=== PATIENT | male | born 1955 | race Two or more races ===

== ENCOUNTER → 2021-12-30 | Emergency (ER) | payer SELFPAY ==
[~2021-12-30] VITALS: Ht 170.2 cm; Wt 73.5 kg
--- NOTE | 2021-12-30 14:00 | NUR ---
IV ESTABLISHED R HAND 20G. LABS DRAWN AND COLLECTED AT BEDSIDE.
[2021-12-30] MEDS: IV NS 0.9% 1,000 ML BAG IV ONE (14:05)
[2021-12-30 14:28] LABS: CARBON DIOXIDE 25 mmol/L (21-32); CHLORIDE 102 mmol/L (98-107); CREATININE 1.9 mg/dL (0.6-1.3); GLUCOSE 196 mg/dL (74-106); POTASSIUM 4.1 mmol/L (3.5-5.1); SODIUM SERUM 135 mmol/L (136-145); UREA NITROGEN, BLOOD 33 mg/dL (7-18)
[2021-12-30 14:31] LABS: BASOPHILS % (AUTO) 0.4 % (0.0-2.0); EOSINOPHILS % (AUTO) 0.7 % (0.0-6.0); HEMATOCRIT 37 % (39-51); HEMOGLOBIN 12.3 g/dL (13.5-17.5); LYMPHOCYTES # (AUTO) 2.4 K/uL (0.8-4.8); MEAN CORPUSCULAR HGB CONC 34 g/dl (31.0-36.0); MEAN CORPUSCULAR VOLUME 88 fL (80-96); MONOCYTES # (AUTO) 0.5 K/uL (0.1-1.30); MONOCYTES % (AUTO) 7.6 % (2.0-12.0); NEUTROPHILS # (AUTO) 3.7 K/uL (1.8-8.9); NEUTROPHILS % (AUTO) 55.3 % (43.0-81.0); PLATELET COUNT (AUTO) 225 K/uL (150-450); RED BLOOD CELL COUNT(AUTO) 4.17 MIL/uL (4.5-6.0); WHITE BLOOD COUNT (AUTO) 6.7 K/uL (4.3-11.0)
[2021-12-30 14:38] LABS: ALANINE AMINOTRANSFERASE 58 U/L (12-78); ALBUMIN 4.4 g/dL (3.4-5.0); ALKALINE PHOSPHATASE 103 U/L (46-116); ASPARTATE AMINOTRANSFERASE 67 U/L (15-37); BILIRUBIN,DIRECT 0.1 mg/dL (0.0-0.2); BILIRUBIN,TOTAL 0.6 mg/dL (0.2-1.0); TOTAL PROTEIN, SERUM 9.8 g/dL (6.4-8.2)
[2021-12-30 15:41] LABS: ALCOHOL, BLOOD < 3 mg/dL (0-0)
[2021-12-30 17:03] VITALS: BP 154/84
== END | disposition home or self-care (01) ==
LOC: ER 13:23
DX: R55 Syncope and collapse (principal); F12.90 Cannabis use, unspecified, uncomplicated; I10 Essential (primary) hypertension; E11.9 Type 2 diabetes mellitus without complications; Z60.2 Problems related to living alone
CPT/HCPCS: 99285; 96360; 93005; 71045; 85025; 80048; 80076; 36415; 84484 ×2; 86850; 83880; 82962 ×2; 80320; J7030; G0480